=== PATIENT | male | born 1960 | race Caucasian/White ===

== ENCOUNTER 2018-06-30 10:24 | Day surgery (SDC) | payer MEDICAID ==
[~2018-06-30] VITALS: Ht 165.1 cm; Wt 70.5 kg
[2018-06-30] MEDS ORDERED: MIDAZOLAM HCL 2 MG/2 ML VIAL IVP ONE (10:25)
[2018-06-30] MEDS ORDERED: LIDOCAINE HCL/PF 2% 5 ML VIAL IM ONE (10:25)
[2018-06-30] MEDS ORDERED: PROPOFOL 1% 20 ML VIAL IVP ONE (10:25)
[2018-06-30] MEDS ORDERED: SODIUM CHLORIDE 0.9% 1,000 ML IV ONE ×2 (10:32→12:00)
[2018-06-30] MEDS ORDERED: ASPI81 PO (11:03)
[2018-06-30] MEDS ORDERED: LISI-662 PO (11:03)
== END 2018-06-30 14:10 | disposition home or self-care (01) ==
LOC: SURGERY 10:24
PROVIDERS: ATTEND Internal Medicine Gastroenterology
DX: D12.5 Benign neoplasm of sigmoid colon (principal); K57.30 Diverticulosis of large intestine without perforation or abscess without bleeding; I10 Essential (primary) hypertension; M19.90 Unspecified osteoarthritis, unspecified site; L40.8 Other psoriasis; Z79.82 Long term (current) use of aspirin; Z76.89 Persons encountering health services in other specified circumstances; Z87.440 Personal history of urinary (tract) infections; Z87.891 Personal history of nicotine dependence; Z72.89 Other problems related to lifestyle; Z79.899 Other long term (current) drug therapy; Z98.890 Other specified postprocedural states; Z82.5 Family history of asthma and other chronic lower respiratory diseases; Z83.79 Family history of other diseases of the digestive system; Z82.61 Family history of arthritis; Z83.3 Family history of diabetes mellitus; Z81.8 Family history of other mental and behavioral disorders; Z80.3 Family history of malignant neoplasm of breast; Z84.89 Family history of other specified conditions; Z80.8 Family history of malignant neoplasm of other organs or systems; Z84.1 Family history of disorders of kidney and ureter
CPT/HCPCS: 45385; 88305; C1769; J2250; J2704; J3490; J7030; 93005